=== PATIENT | male | born 1945 | race Caucasian/White ===

== ENCOUNTER → 2020-12-03 | Outpatient (CLI) | payer MEDICARE ==
--- NOTE | 2020-12-03 21:48 | CT ---
EXAMINATION TYPE: CT abdomen pelvis w con DATE OF EXAM: 12/03/2020 COMPARISON: None INDICATION: bladder ca DLP: 752.7 mGycm, Automated exposure control for dose reduction was used. CONTRAST: 100 mL of Isovue 300. Study performed with Oral Contrast TECHNIQUE: Axial images were obtained from above the diaphragm to the pubic rami in the axial plane a t 5 mm thick sections. Reconstructed images are reviewed on the computer in the coronal plane. FINDINGS: Limited CT sections are obtained the lung bases. There is streak opacity within the posterior left l arnav base may be some atelectasis or infiltrate.. Urinary calcifications present. There is a moderate size hiatal hernia with contrast CT ABDOMEN: Liver: Normal Spleen: Normal Pancreas: Slightly atrophic Adrenal glands: The adrenal glands are normal. Gallbladder: Normal Kidneys: No masses are evident. No hydronephrosis is present. Cortical renal cyst is within the mid right kidney. Delayed images were obtained through the kidneys, which remain unremarkable. Aorta: Vascular calcification is within the aorta. Inferior vena cava: Normal. CT PELVIS: Loops of bowel within the abdomen and pelvis are normal. There are loops of bowel which are incom pletely distended or lack oral contrast limiting their evaluation. Appendix: Normal as visualized. Urinary bladder: There is some wall thickening along the left urinary bladder wall. The urinary bladd er is within the mid to right lateral hemipelvis. Genitourinary structures: Prostate appears normal Osseous structures: No suspicious lytic or sclerotic lesions. IMPRESSIONS: 1. Thickening along the left aspect of the urinary bladder can be postsurgical or related to the pat ient's bladder cancer. 2. Suspected atelectasis or infiltrate along the left lung base
== END | disposition home or self-care (01) ==
LOC: RADCTMAIN 13:27
PROVIDERS: ATTEND Urology
DX: C67.9 Malignant neoplasm of bladder, unspecified (principal)
CPT/HCPCS: 82565; 84520; 74177; 36415; Q9967

== ENCOUNTER → 2022-03-10 | Outpatient (CLI) | payer MEDICARE ==
--- NOTE | 2022-03-10 21:59 | CT ---
EXAMINATION TYPE: CT abdomen pelvis w con DATE OF EXAM: 03/10/2022 COMPARISON: CT dated 12/03/2020 HISTORY: H/O BLADDER CA CT DLP: 883.8 mGycm Automated exposure control for dose reduction was used. TECHNIQUE: Helical acquisition of images was performed from the lung bases through the pelvis. CONTRAST: Performed with Oral Contrast and with IV Contrast, patient injected with 80 mL of Isovue 300. FINDINGS: LUNG BASES: Bilateral basal pleural thickening, tiny calcifications, small pleural fluid and adjacent basal atelectasis, appreciated previously. Coronary arterial calcification with left atrial enlargem ent. Bilateral gynecomastia changes. LIVER/GB: No significant abnormality is appreciated. PANCREAS: Atrophic with fatty infiltration. SPLEEN: No significant abnormality is seen. ADRENALS: No significant abnormality is seen. KIDNEYS: Stable right renal hypodensities likely representing renal cysts as well as the left lower p ole renal cortical defect. Unremarkable kidneys otherwise. FREE AIR: No free air is visualized. RETROPERITONEAL ADENOPATHY: None visualized REPRODUCTIVE ORGANS: No significant abnormality is seen URINARY BLADDER: Mild wall thickening of the left anterolateral aspect of the urinary bladder, appre ciated previously. Residual cancer cannot be excluded. PELVIC ADENOPATHY: No pathologically enlarged pelvic lymph nodes. OSSEOUS STRUCTURES: Osteopenia. Degenerative changes of the lower thoracic and lumbar spine as well as hip joints and sacroiliac joints. BOWEL: Hiatal hernia containing a small portion of the stomach. Unremarkable remainder of the stomac h, duodenum and small bowel. Fecal loading of the rectum and right hemicolon. OTHER: Arterial atherosclerotic calcifications. Infrarenal abdominal aortic ectasia measuring up to 2 .8 cm. Stenosis of the origin of the celiac trunk yet patent distally. No sizable ascites. Fat-contai zofia inguinal hernia. IMPRESSION: Grossly stable focal thickening along the left lateral aspect of the urinary bladder wall which could be related to postsurgical/postoperative changes however residual bladder cancer cannot be excluded. No evidence of metastatic disease in the abdomen or the pelvis. Incidental findings as described abo ve.
== END | disposition home or self-care (01) ==
LOC: RADCTMAIN 14:00
PROVIDERS: ATTEND Urology
DX: N32.89 Other specified disorders of bladder (principal); Z85.51 Personal history of malignant neoplasm of bladder
CPT/HCPCS: 82565; 84520; 74177; 36415; Q9967

== ENCOUNTER → 2023-03-18 | Outpatient (CLI) | payer MEDICARE ==
--- NOTE | 2023-03-18 15:21 | CT ---
EXAMINATION TYPE: CT abdomen pelvis w con DATE OF EXAM: 03/18/2023 COMPARISON: Prior CT March 10, 2024 and older study December 03, 2020 HISTORY: H/O BLADDER CA, F/U CT DLP: 860.2 mGycm, Automated Exposure Control for Dose Reduction was Utilized. CONTRAST: CT scan of the abdomen and pelvis is performed with oral and with IV Contrast, patient injected with 100 mL of Isovue 300. FINDINGS: LUNG BASES: Mild to moderate Posterior left basilar linear scarring is redemonstrated. Mild linear sc arring in the right lung base again seen. Trace bilateral pleural effusions redemonstrated. Some pleu ral calcifications are redemonstrated bilaterally. Bilateral gynecomastia is again seen. Coronary art lynn calcification and RCA distribution is redemonstrated LIVER/GB: No significant abnormality is appreciated. PANCREAS: Moderate generalized fat replaced atrophy redemonstrated. SPLEEN: No significant abnormality is seen. ADRENALS: No significant abnormality is seen. KIDNEYS: Symmetric cortical medullary uptake and excretion without hydronephrosis seen bilaterally. A few small simple appearing thin-walled cyst in the upper pole of right kidney are redemonstrated. No suspicious intraluminal mass in the bladder is present. Focal mild wall thickening along left aspect of bladder wall axial image 76 is unchanged from prior studies. BOWEL: Small sized hiatal hernia again seen. Oral contrast reaches level of the cecum. No suspicious small or large bowel dilatation. A few diverticula in the sigmoid colon are redemonstrated. PROSTATE/SEMINAL VESICLES: No gross abnormality seen. LYMPH NODES: No greater than 1cm abdominal or pelvic lymph nodes are appreciated. OSSEOUS STRUCTURES: Bridging osteophytes and multilevel spurring in the thoracolumbar spine are redem onstrated. Multilevel disc space narrowing is also again seen. Facet arthropathy lower lumbar levels. OTHER: Stable small fat-containing left inguinal hernia. Moderate mixed plaque of the aorta extends i nto branch vessels. IMPRESSION: Stable mild eccentric wall thickening left aspect of bladder is nonspecific. No worsening wall thickening or new mass identified. No new adenopathy seen to suggest active neoplastic recurren ce or progression.
== END | disposition home or self-care (01) ==
LOC: RADCTMAIN 13:06
PROVIDERS: ATTEND Urology
DX: C67.9 Malignant neoplasm of bladder, unspecified (principal); N32.89 Other specified disorders of bladder
CPT/HCPCS: 82565; 84520; 74177; 36415; Q9967

== ENCOUNTER → 2024-03-20 | Outpatient (CLI) | payer MEDICARE ==
[2024-03-20 12:23] LABS: African American GFR (CKD) 70 (>60 ml/min/1.73 sqM); Blood Urea Nitrogen 28 mg/dL (9-20); Non-African American GFR(CKD) 61 (>60 ml/min/1.73 sqM)
--- NOTE | 2024-03-21 12:42 | CT ---
EXAMINATION TYPE: CT abdomen w con CT DLP: 567.8 mGycm, Automated exposure control for dose reduction was used. DATE OF EXAM: 03/20/2024 1:32 PM COMPARISON: 03/18/2023 CT abdomen CLINICAL INDICATION:Male, 78 years old with history of C67.9 bladder ca; TECHNIQUE: Axial CT abdomen w con;Sagittal and coronal reformats were created on a separate workstat ion. Contrast used:100 mL of Isovue 300 with IV Contrast, (none if empty) Oral contrast used: with Oral Contrast (none if empty) FINDINGS: LOWER CHEST: Unremarkable ABDOMEN LIVER: Unremarkable GALLBLADDER AND BILE DUCTS: Unremarkable. PANCREAS: Unremarkable. SPLEEN: Unremarkable. ADRENAL GLANDS: Unremarkable. KIDNEYS AND URETERS: No evidence of hydronephrosis or renal calculus. The included ureters are unrema rkable. A few small simple appearing cysts in the kidneys require no follow-up. PELVIS Not included. ABDOMEN: STOMACH AND BOWEL: Normal. Stomach. Normal caliber small bowel. No evidence of bowel obstruction. PERITONEUM/RETROPERITONEUM: No evidence of pneumoperitoneum or free fluid. VASCULATURE: No evidence of aortic aneurysm. Scattered dense calcific abdominal aortic atherosclero sis. MUSCULOSKELETAL: No acute osseous abnormalities LYMPH NODES: No gross evidence for lymphadenopathy. SOFT TISSUE/ABDOMINAL WALL: Unremarkable IMPRESSION: 1. No definite CT evidence of acute process in the abdomen
== END | disposition home or self-care (01) ==
LOC: RADCTMAIN 11:39
PROVIDERS: ATTEND Urology
DX: C67.9 Malignant neoplasm of bladder, unspecified (principal)
CPT/HCPCS: 82565; 84520; 74160; 36415; Q9967

== ENCOUNTER → 2024-08-10 | Outpatient (CLI) | payer MEDICARE ==
--- NOTE | 2024-08-10 14:02 | CT ---
EXAMINATION TYPE: CT chest wo con CT DLP: 735.70 mGycm, Automated exposure control for dose reduction was used. DATE OF EXAM: 08/10/2024 1:35 PM COMPARISON: None CLINICAL INDICATION: Male, 79 years old with history of J84.9 LUNG DISEASE; PHH, Lung disease, SOB, h igh resolution TECHNIQUE: High resolution contiguous 1.5 mm axial images of the chest were obtained in a supine and prone position. Noncontiguous 1 mm axial images at 10 mm intervals were obtained in supine position i n expiration. Coronal and sagittal reformatted images were obtained. No intravenous contrast was admi nistered. Contrast used: mL of (None if empty) Oral contrast used: (None if empty) FINDINGS: LUNGS: There is no evidence of interstitial thickening, significant groundglass opacity, honeycombing or architectural distortion in the lungs. No acute area of infiltrative or consolidative change. LARGE AIRWAYS: Central airways are patent. No dynamic airway collapse on expiratory imaging. Mild bro nchial wall dilation worse in the left lower lobe. PLEURA: No pleural effusion or thickening. HEART: Size within normal limits. Coronary artery disease with calcifications and aortic valve calcif ications present. MEDIASTINUM: No gross evidence of adenopathy. VASCULATURE: No aortic aneurysm. MUSCULOSKELETAL: No acute osseous abnormalities SOFT TISSUES/LYMPH NODES: Unremarkable. LOWER NECK: No significant findings. UPPER ABDOMEN: No significant findings. IMPRESSION: 1. No evidence for pulmonary fibrosis. No significant interstitial lung disease. 2. Mild COPD with bronchial dilation. 3. Partially calcified lymph nodes throughout the mediastinum compatible with chronic granulomatous disease. 4. Coronary artery atherosclerosis. 5. Aortic valve calcifications
== END | disposition home or self-care (01) ==
LOC: RADCTMAIN 12:20
PROVIDERS: ATTEND Internal Medicine Critical Care Medicine
DX: J84.9 Interstitial pulmonary disease, unspecified
CPT/HCPCS: 71250

== ENCOUNTER → 2025-05-21 | Outpatient (CLI) | payer MEDICARE ==
[2025-05-21 09:47] LABS: Appearance,Urine Clear (Clear); Basophils # (A) 0.05 10*3/uL (0.00-0.10); Basophils % (A) 0.9 %; Bilirubin,Urine Negative (Negative); Blood,Urine Negative (Negative); Color,Urine Yellow; Eosinophils # (A) 0.19 10*3/uL (0.04-0.35); Eosinophils % (A) 3.4 %; Glucose,Urine (UA) Negative (Negative); HCT 30.9 % (39.6-50.0); HGB 9.5 g/dL (13.0-17.0); Ketones,Urine Negative (Negative); Leukocyte Esterase,Urine Negative (Negative); Lymphocytes # (A) 0.68 10*3/uL (0.90-5.00); MCH 28.8 pg (27.0-32.0); MCHC 30.7 g/dL (32.0-37.0); MCV 93.6 fL (80.0-97.0); Mean Platelet Volume 9.9 fL (9.5-12.2); Monocytes # (A) 0.53 10*3/uL (0.20-1.00); Monocytes % (A) 9.4 %; Neutrophils # (A) 4.18 10*3/uL (1.80-7.70); Neutrophils % (A) 73.9 %; Nitrite,Urine Negative (Negative); PH, Urine 5.5 (5.0-8.0); Platelet Count 248 10*3/uL (140-440); Protein,Urine Trace (Negative); RDW 16.7 % (11.5-14.5); Specific Gravity,Urine 1.025 (1.001-1.035); Urobilinogen,Urine <2.0 mg/dL (<2.0); WBC 5.65 10*3/uL (4.50-10.00)
[2025-05-21 10:06] LABS: ALT 15 U/L (4-49); AST 22 U/L (17-59); African American GFR (CKD) 81 (>60 ml/min/1.73 sqM); Albumin 4.2 g/dL (3.5-5.0); Albumin/Globulin Ratio 1.9; Alkaline Phosphatase 74 U/L (38-126); Anion Gap 8 mmol/L; Bilirubin,Unconjugated 0.3 mg/dL (0.0-1.1); Blood Urea Nitrogen 28 mg/dL (9-20); Calcium 9.6 mg/dL (8.4-10.2); Carbon Dioxide 23 mmol/L (22-30); Chloride 110 mmol/L (98-107); Globulin 2.2 g/dL; Glucose 105 mg/dL (74-99); Non-African American GFR(CKD) 70 (>60 ml/min/1.73 sqM); Potassium 4.5 mmol/L (3.5-5.1); Sodium 141 mmol/L (137-145); Total Bilirubin 0.5 mg/dL (0.2-1.3); Total Protein 6.4 g/dL (6.3-8.2)
[2025-05-21 10:14] LABS: NT-Pro-B-Type Natriuretic Pept 1450 pg/mL
[2025-05-21 10:15] LABS: INR 1.1 (<1.2)
[2025-05-21 10:16] LABS: Partial Thromboplastin Time 24.4 sec (22.0-30.0); Prothrombin Time 11.6 sec (10.0-12.5)
[2025-05-21 15:19] LABS: Chol/HDL Ratio 2.01 Ratio; LDL Cholesterol,Calculated 57.3 mg/dL (0.0-131.0)
--- NOTE | 2025-05-24 06:52 | CT ---
EXAMINATION TYPE: CT TAVR Planning DATE OF EXAM: 05/23/2025 HISTORY: AORTIC VALVE INSUFFICIENCY CT DLP: 1950.4 mGycm Automated Exposure Control for Dose Reduction was Utilized. CONTRAST: CT scan of the chest, abdomen and pelvis is performed with IV Contrast, patient injected with 120 mL of Isovue 370. COMPARISON: CT chest 08/10/[address] abdomen 03/20/2024 TECHNIQUE: Helical imaging obtained through the chest, abdomen and pelvis during arterial phase calvin norma administration of radiographic contrast intravenously. FINDINGS: VASCULAR: There are calcifications of the aortic valve leaflets. The aortic arch is within normal saldana its. The major branches of the aortic arch are patent. Calcifications at the bilateral carotid bifurc ations. Major branches of the aortic arch are patent. Calcification is at the bilateral carotid bifur cations. Minimal calcifications in the ascending ng No evidence for aneurysmal dilation of the ascend ing or descending thoracic aorta. The abdominal aorta is patent as well as the major vessels of the a bdominal aorta. The common iliac arteries and external iliac arteries are patent. LUNGS/ PLEURA: Calcified pleural plaquing is present within posterior medial lungs. Some stranding th e left lung base. HEART: Size within normal limits. MEDIASTINUM: No gross evidence of adenopathy. VASCULATURE: No aortic aneurysm. Ascending thoracic aorta at the main pulmonary arteries 3.6 cm. Isa n pulmonary artery bifurcation is 2.5 cm. Coronary artery calcifications noted. There is a three-vess el arch MUSCULOSKELETAL: No acute osseous abnormalities ABDOMEN anterior abdominal wall hernia containing mesenteric fat is present. LIVER: Unremarkable GALLBLADDER AND BILE DUCTS: Unremarkable. PANCREAS: Somewhat atrophic SPLEEN: Unremarkable. ADRENAL GLANDS: Unremarkable. KIDNEYS AND URETERS: No evidence of hydronephrosis or renal calculus. The ureters are unremarkable. PELVIS BLADDER: Unremarkable REPRODUCTIVE: Unremarkable. ABDOMEN & PELVIS VASCULATURE: There is minimal fusiform prominence of the mid abdominal aorta 2.9 cm. Vascular calcifi cation within the common femoral arteries. MUSCULOSKELETAL: No acute osseous abnormalities LYMPH NODES: No gross evidence for lymphadenopathy. Bowel: Diverticular changes are within the sigmoid colon. IMPRESSIONS: 1. No suspicious acute changes. 2. Mild fusiform prominence of the mid abdominal aorta 2.9 cm. 3. Calcified pleural plaque bilateral lungs. Correlate for prior asbestos exposure. 4. Carotid bifurcation calcification. [facility], , 05/24/2025 6:49 AM
== END | disposition home or self-care (01) ==
LOC: LABWHC1 08:54
PROVIDERS: ATTEND Thoracic Surgery (Cardiothoracic Vascular Surgery)
DX: I35.0 Nonrheumatic aortic (valve) stenosis (principal); E11.9 Type 2 diabetes mellitus without complications; N28.9 Disorder of kidney and ureter, unspecified; E78.5 Hyperlipidemia, unspecified; R58 Hemorrhage, not elsewhere classified; E87.8 Other disorders of electrolyte and fluid balance, not elsewhere classified; E07.9 Disorder of thyroid, unspecified; R35.0 Frequency of micturition; Z79.01 Long term (current) use of anticoagulants; Z79.899 Other long term (current) drug therapy
CPT/HCPCS: 94150; 83880; 80061; 80053; 84443; 82248; 83735; 85025; 85610; 85730; 81003; 87086; 83036; 71275; 74174; 36415; Q9967